=== PATIENT | female | born 1930 | race Caucasian/White ===

== ENCOUNTER → 2017-04-16 | Outpatient (CLI) | payer OTHER ==
[~2017-04-16] MED LIST: ANT25 PO; ASPI325T39 PO; ATOR10TA82 PO; GLC500 PO; HYDR-5688 PO; LSN25 PO; MULT-506 PO; NCYSR50 PO; XRL10 PO; [UNRECOGNIZED DRUG - CODE] PO
--- NOTE | 2017-04-16 14:43 | MAMMOGRAPHY REPORT ---
BILATERAL DIGITAL SCREENING MAMMOGRAM WITH CAD: 04/16/2017 CLINICAL HISTORY: Routine screening. Patient has no complaints. TECHNIQUE: Current study was also evaluated with a Computer Aided Detection (CAD) system. Bilateral CC and MLO views were obtained. COMPARISON: Comparison is made to exams dated: 04/12/2015 mammogram, 04/14/2016 mammogram, 03/10/2012 mamm ogram, 03/06/2011 mammogram, 04/11/2014 mammogram, and 03/05/2010 mammogram - [facility] BREAST COMPOSITION: The tissue of both breasts is heterogeneously dense, which may obscure small mas ses. FINDINGS: No suspicious masses, calcifications, or areas of architectural distortion are noted in ei ther breast. There has been no significant interval change compared to prior exams. Bilateral benign -appearing calcifications are not significantly changed. Circular markers mackenzie multiple bilateral sk in moles. IMPRESSION: ACR BI-RADS CATEGORY 2: BENIGN There is no mammographic evidence of malignancy. A 1 year screening mammogram is recommended. The pa tient will receive written notification of the results. Approximately 10% of breast cancers are not detected with mammography. A negative mammographic report should not delay biopsy if a clinically suggestive mass is present. Beata Cote M.D. /:04/16/2017 10:33:10 [employer]: Maday BARBA)(M), [facility] letter sent: Normal 1/2 BI-RADS Code: ACR BI-RADS Category 2: Benign
== END | disposition home or self-care (01) ==
LOC: C.MAMM 10:03
PROVIDERS: ATTEND Family Medicine
DX: Z12.31 Encounter for screening mammogram for malignant neoplasm of breast (principal)

== ENCOUNTER → 2017-06-03 | Outpatient (CLI) | payer OTHER ==
[~2017-06-03] MED LIST changes: -ATOR10TA82 PO; +ATOR10TA88 PO
[2017-06-03 10:53] LABS: ESTIMATED AVERAGE GLUCOSE 123 mg/dl; HA1C FLAG Normal (Normal)
[2017-06-03 12:32] LABS: ALT/SGPT 21 U/L (12-78); AST/SGOT 18 U/L (15-37); BLOOD UREA NITROGEN 22 mg/dl (7-18); BUN/CREATININE RATIO 23.7 (10-20); CALCIUM 9.3 mg/dl (8.5-10.1); CARBON DIOXIDE 26 mmol/L (21-32); CHLORIDE 110 mmol/L (98-107); CREATININE 0.92 mg/dl (0.60-1.20); GLUCOSE 106 mg/dl (70-99); POTASSIUM 4.4 mmol/L (3.5-5.1); SODIUM 142 mmol/L (136-145)
[2017-06-03 12:43] LABS: ALB/GLOB RATIO 1.3 (0.9-2); ALKALINE PHOSPHATASE 78 U/L (45-117); CHOLESTEROL 160 mg/dl (0-200); CHOLESTEROL/HDL RATIO 1.8; HDL CHOLESTEROL 90 mg/dl; LDL CHOLESTEROL CALCULATED 60 mg/dl; TRIGLYCERIDES 52 mg/dl (0-150); VERY LOW DENSITY LIPOPROT CALC 10 mg/dl
== END | disposition home or self-care (01) ==
LOC: C.LAB1850 09:13
PROVIDERS: ATTEND Family Medicine
DX: E11.9 Type 2 diabetes mellitus without complications (principal)

== ENCOUNTER → 2017-08-24 | Outpatient (CLI) | payer OTHER ==
[2017-08-24 10:14] LABS: ESTIMATED AVERAGE GLUCOSE 123 mg/dl; HA1C FLAG Normal (Normal)
[2017-08-24 10:16] LABS: ALT/SGPT 18 U/L (12-78); BLOOD UREA NITROGEN 26 mg/dl (7-18); BUN/CREATININE RATIO 27.5 (10-20); CALCIUM 9.1 mg/dl (8.5-10.1); CARBON DIOXIDE 27 mmol/L (21-32); CHLORIDE 109 mmol/L (98-107); CHOLESTEROL 158 mg/dl (0-200); CHOLESTEROL/HDL RATIO 1.7; CREATININE 0.95 mg/dl (0.60-1.20); GLUCOSE 107 mg/dl (70-99); HDL CHOLESTEROL 91 mg/dl; LDL CHOLESTEROL CALCULATED 55 mg/dl; POTASSIUM 4.3 mmol/L (3.5-5.1); SODIUM 142 mmol/L (136-145); TRIGLYCERIDES 59 mg/dl (0-150); VERY LOW DENSITY LIPOPROT CALC 12 mg/dl
== END | disposition home or self-care (01) ==
LOC: C.LAB1850 08:38
PROVIDERS: ATTEND Family Medicine
DX: E78.00 Pure hypercholesterolemia, unspecified (principal); I10 Essential (primary) hypertension; E11.9 Type 2 diabetes mellitus without complications

== ENCOUNTER → 2017-12-11 | Outpatient (CLI) | payer OTHER ==
[~2017-12-11] MED LIST changes: +ATOR10TA82 PO; -ATOR10TA88 PO
[2017-12-11 12:40] LABS: ALT/SGPT 20 U/L (12-78); BLOOD UREA NITROGEN 26 mg/dl (7-18); CALCIUM 9.4 mg/dl (8.5-10.1); CARBON DIOXIDE 28 mmol/L (21-32); CHOLESTEROL 160 mg/dl (0-200); CREATININE 0.91 mg/dl (0.60-1.20); GLUCOSE 94 mg/dl (70-99); POTASSIUM 4.2 mmol/L (3.5-5.1); SODIUM 142 mmol/L (136-145)
[2017-12-11 12:42] LABS: HEMOGLOBIN A1C 5.8 % (4.5-5.6)
[2017-12-11 12:43] LABS: LDL CHOLESTEROL CALCULATED 67 mg/dl
== END | disposition home or self-care (01) ==
LOC: C.LAB1850 10:48
PROVIDERS: ATTEND Family Medicine
DX: E78.00 Pure hypercholesterolemia, unspecified (principal); I10 Essential (primary) hypertension; E11.9 Type 2 diabetes mellitus without complications

== ENCOUNTER 2018-03-07 13:31 | Emergency (ER) | payer OTHER ==
[~2018-03-07] VITALS: Ht 157.5 cm; Wt 59.0 kg
[2018-03-07 13:39] VITALS: TEMP 36.7; Ht 157.5 cm; Wt 59.0 kg
[2018-03-07] MEDS ORDERED: SODIUM CHLORIDE 0.9% 1000ML 1,000 ML IV STA (14:01)
[2018-03-07 14:18] LABS: BASO % 0.2 %; BASO ABS # 0.01 K/uL (0-0.2); EOS % 0.9 %; EOS ABS # 0.04 K/uL (0-0.5); HEMATOCRIT 37.7 % (37-47); HEMOGLOBIN 12.7 g/dL (12.0-16.0); LYMPH % 19.4 %; LYMPH ABS # 0.84 K/uL (1.2-3.4); MEAN CELL VOLUME 94.3 fL (80-100); MEAN CORPUSCULAR HEMOGLOBIN 31.8 pg (25-34); MEAN CORPUSCULAR HGB CONC 33.7 g/dl (32-36); MEAN PLATELET VOLUME 9.9 fL (7.4-10.4); MONO % 9.3 %; NEUT % 70.2 %; NEUT ABS # 3.03 K/uL (1.4-6.5); PLATELET COUNT 209 K/uL (130-400); RED CELL DISTRIBUTION WIDTH CV 13.5 % (11.5-14.5); RED CELL DISTRIBUTION WIDTH SD 46.6 fL (36.4-46.3); WHITE BLOOD COUNT 4.32 K/uL (4.8-10.8)
[2018-03-07] MEDS ORDERED: METF-384 PO (14:19)
[2018-03-07] MEDS ORDERED: MULT-506 PO (14:19)
[2018-03-07] MEDS ORDERED: LISI20TA3 PO (14:19)
[2018-03-07] MEDS ORDERED: MISCCAP80 PO (14:19)
[2018-03-07] MEDS ORDERED: ATOR-22 PO (14:19)
[2018-03-07] MEDS ORDERED: COEN1CAP17 PO (14:19)
[2018-03-07 14:33] LABS: CREATININE 1.42 mg/dl (0.60-1.20); POTASSIUM 3.7 mmol/L (3.5-5.1)
[2018-03-07 14:36] LABS: TOTAL PROTEIN 7.7 gm/dl (6.4-8.2)
--- NOTE | 2018-03-07 15:43 | EMERGENCY ROOM VISIT NOTE ---
History Report prepared by Mario: Ad Golden Under the Supervision of: Dr. Mitesh Anderson M.D. First contact with patient: 13:48 Chief Complaint: DIARRHEA Stated Complaint: NAUSEA,DIARRHEA,ABDOMINAL PAIN History of Present Illness The patient is an 87 year old female who presents to the Emergency Room with complaints of intermittent, black, diarrhea beginning four days ago. She currently rates her discomfort a 5/10 in severity. The patient states her symptoms started morning and she had 10 episodes of diarrhea. She reports yesterday she had four episodes in the morning, and then she did not have an episode until later that evening. The patient notes she has had two episodes today. She states she is also experiencing nausea and abdominal cramping. The patient reports she took Kaopectate and does not remember if it was before or after the stool changed colors. She notes she has had chemotherapy twice for recurrent colon cancer. The patient states she has not had radiation, and she had two surgeries for her cancer. She denies weakness, lightheadedness, chest pain, shortness of breath, being on a blood thinner, a history of stomach bleeding, a history of an MD, and a history of heart, liver, kidney, or lung disease. Source of History: patient Onset: four days ago Symptom Intensity: 5/10 Quality: other (black diarrhea) Timing: intermittent Associated Symptoms: + nausea, No chest pain, No SOB, No weakness Note: Associated symptoms; abdominal cramping Denies: lightheadedness Review of Systems See HPI for pertinent positives & negatives. A total of 10 systems reviewed and were otherwise negative. Past Medical & Surgical Medical Problems: (1) Colon cancer Family History Patient reports no known family medical history. Social History Smoking Status: Never Smoker Marital Status: Housing Status: lives with significant other Occupation Status: retired Current/Historical Medications Scheduled Atorvastatin (Lipitor), 20 MG PO DAILY Coenzyme Q10 (Ubidecarenone) (Co Q 10), 1 CAP PO DAILY Lisinopril (Prinivil), 20 MG PO DAILY Metformin Hcl (Glucophage), 1,000 MG PO BID Multivitamin (Multivitamin), 1 TAB PO DAILY Probiotic Product (Probiotic), 1 CAP PO DAILY Allergies Coded Allergies: Sulfa Drugs (Verified Allergy, Unknown, DIZZY, 02/27/14) Physical Exam Vital Signs Date Time Temp Pulse Resp B/P (MAP) Pulse Ox O2 Delivery O2 Flow Rate FiO2 03/07/18 17:02 74 16 128/64 98 Room Air 03/07/18 15:17 76 18 149/76 98 Room Air 03/07/18 13:39 36.7 93 18 143/76 98 Room Air Physical Exam GENERAL: Patient is in no acute distress. HEENT: No acute trauma, normocephalic atraumatic, mucous membranes moist, no nasal congestion, no scleral icterus. NECK: No stridor, no adenopathy, no meningismus, trachea is midline. LUNGS: Clear to auscultation bilaterally, no wheeze, no rhonchi, breath sounds equal. HEART: Without murmurs gallops or rubs, regular rate and rhythm. ABDOMEN: Soft, nontender, bowel sounds positive, no hernias, no peritonitis. RECTAL (completed in the presence of the patient's significant other): Dark brown stool. Heme negative. EXTREMITIES: No cyanosis or edema, full range of motion of all the joints without pain or difficulty, no signs for acute trauma. NEUROLOGIC: Oriented x 3, no acute motor or sensory deficits, no focal weakness. SKIN: No rash, no jaundice, no diaphoresis. Medical Decision & Procedures Laboratory Results 03/07/18 14:06 Red Blood Count 4.00, Mean Corpuscular Volume 94.3, Mean Corpuscular Hemoglobin 31.8, Mean Corpuscular Hemoglobin Concent 33.7, Mean Platelet Volume 9.9, Neutrophils (%) (Auto) 70.2, Lymphocytes (%) (Auto) 19.4, Monocytes (%) (Auto) 9.3, Eosinophils (%) (Auto) 0.9, Basophils (%) (Auto) 0.2, Neutrophils # (Auto) 3.03, Lymphocytes # (Auto) 0.84, Monocytes # (Auto) 0.40, Eosinophils # (Auto) 0.04, Basophils # (Auto) 0.01 03/07/18 14:06 Test 03/07/18 14:06 03/07/18 15:10 White Blood Count 4.32 K/uL (4.8-10.8) Red Blood Count 4.00 M/uL (4.2-5.4) Hemoglobin 12.7 g/dL (12.0-16.0) Hematocrit 37.7 % (37-47) Mean Corpuscular Volume 94.3 fL (80-100) Mean Corpuscular Hemoglobin 31.8 pg (25-34) Mean Corpuscular Hemoglobin Concent 33.7 g/dl (32-36) Platelet Count 209 K/uL (130-400) Mean Platelet Volume 9.9 fL (7.4-10.4) Neutrophils (%) (Auto) 70.2 % Lymphocytes (%) (Auto) 19.4 % Monocytes (%) (Auto) 9.3 % Eosinophils (%) (Auto) 0.9 % Basophils (%) (Auto) 0.2 % Neutrophils # (Auto) 3.03 K/uL (1.4-6.5) Lymphocytes # (Auto) 0.84 K/uL (1.2-3.4) Monocytes # (Auto) 0.40 K/uL (0.11-0.59) Eosinophils # (Auto) 0.04 K/uL (0-0.5) Basophils # (Auto) 0.01 K/uL (0-0.2) RDW Standard Deviation 46.6 fL (36.4-46.3) RDW Coefficient of Variation 13.5 % (11.5-14.5) Immature Granulocyte % (Auto) 0.0 % Immature Granulocyte # (Auto) 0.00 K/uL (0.00-0.02) Anion Gap 10.0 mmol/L (3-11) Est Creatinine Clear Calc Drug Dose 21.7 ml/min Estimated GFR () 38.1 Estimated GFR (Non- 32.9 BUN/Creatinine Ratio 20.2 (10-20) Calcium Level 9.0 mg/dl (8.5-10.1) Magnesium Level 1.8 mg/dl (1.8-2.4) Total Bilirubin 0.4 mg/dl (0.2-1) Aspartate Amino Transf (AST/SGOT) 38 U/L (15-37) Alanine Aminotransferase (ALT/SGPT) 33 U/L (12-78) Alkaline Phosphatase 92 U/L (45-117) Total Protein 7.7 gm/dl (6.4-8.2) Albumin 4.0 gm/dl (3.4-5.0) Globulin 3.7 gm/dl (2.5-4.0) Albumin/Globulin Ratio 1.1 (0.9-2) Lipase 222 U/L (73-393) Urine Color DK YELLOW Urine Appearance CLOUDY (CLEAR) Urine pH 5.0 (4.5-7.5) Urine Specific [place] 1.025 (1.000-1.030) Urine Protein 1+ (NEG) Urine Glucose (UA) NEG (NEG) Urine Ketones TRACE (NEG) Urine Occult Blood NEG (NEG) Urine Nitrite NEG (NEG) Urine Bilirubin NEG (NEG) Urine Urobilinogen NEG (NEG) Urine Leukocyte Esterase TRACE (NEG) Urine WBC (Auto) 1-5 /hpf (0-5) Urine RBC (Auto) 5-10 /hpf (0-4) Urine Hyaline Casts (Auto) 10-30 /lpf (0-5) Urine Epithelial Cells (Auto) 20-30 /lpf (0-5) Urine Bacteria (Auto) NEG (NEG) Urine Pathogenic Casts 1-5 GRANULAR CASTS /lpf (0) Laboratory results reviewed by me. Medications Administered Medications (Trade) Dose Ordered Sig/Jonn Route Start Time Stop Time Status Last Admin Dose Admin Sodium Chloride 1,000 ml @ 999 mls/hr Q1H1M STAT IV 03/07/18 14:01 03/07/18 15:01 DC 03/07/18 14:01 999 MLS/HR Sodium Chloride 500 ml @ 999 mls/hr Q31M STAT IV 03/07/18 15:47 03/07/18 16:17 DC 03/07/18 16:04 999 MLS/HR ED Course 1353: The patient was evaluated in room B02. A complete history and physical exam was performed. 1401: Ordered Sodium Chloride 1000 ml @ 999 mls/hr IV 1547: Ordered Sodium Chloride 500 ml @ 999 mls/hr IV 1611: I reevaluated the patient. She is doing better and feeling better. She would like to go home. I told her we are waiting for her C-Diff test results. 1646: Reevaluated the patient. Discussed results and discharge instructions: she verbalized understanding and agreement. The patient is ready for discharge. Medical Decision The patient is an 87 year old female who presents to the ED with complaints of intermittent, black, diarrhea. Differential diagnoses considered include upper or lower GI bleeding, anemia, electrolyte imbalance, dehydration, UTI, colitis or diverticulitis, food borne or viral illness. There is no leukocytosis or concerning anemia. No significant electrolyte abnormality, kidney failure, hepatitis or pancreatitis. Urinalysis shows some contamination, no infection. C difficile testing was negative, stool cultures are pending. Patient was not toxic or hypoxic. There was no peritonitis. The patient received IV saline, a second bolus of saline was given. The patient is doing well, she has no current complaints. I do think she can be discharged with a bland diet, Imodium for diarrhea if needed. We will call her with any positive stool culture results. Family doctor follow-up was suggested. This illness is likely viral or foodborne. She was reassured that the stool did test heme negative. Medication Reconcilliation Current Medication List: was personally reviewed by me Blood Pressure Screening Patient's blood pressure: Elevated blood pressure Blood pressure disposition: Elevated BP felt to be situational Impression Primary Impression: Diarrhea Additional Impression: Black stools Scribe Attestation The scribe's documentation has been prepared under my direction and personally reviewed by me in its entirety. I confirm that the note above accurately reflects all work, treatment, procedures, and medical decision making performed by me. Departure Information Dispostion Home / Self-Care Referrals Nidhi Mcgregor MD (PCP) Forms HOME CARE DOCUMENTATION FORM, IMPORTANT VISIT INFORMATION Patient Instructions My [facility] Additional Instructions bland diet---crackers, soup, toast, gatorade, rice tylenol for pain rest stay well hydrated may use immodium otc per persistent diarrhea as directed on the box follow with the [facility] md this week return if worsening we will call if the stool culture results are positive Problem Qualifiers
[2018-03-07] MEDS ORDERED: SODIUM CHLORIDE 0.9% 500ML 500 ML IV STA (15:47)
[2018-03-07 17:02] VITALS: BP 128/64; PULSE 74; O2SAT 98
== END 2018-03-07 17:03 | disposition home or self-care (01) ==
LOC: C.EDB 13:33
DX: R19.7 Diarrhea, unspecified (principal); K92.1 Melena; C18.9 Malignant neoplasm of colon, unspecified; Z88.2 Allergy status to sulfonamides